=== PATIENT | male | born 1975 | race Caucasian/White ===

== ENCOUNTER 2018-06-06 11:09 | Observation (INO) ==
--- NOTE | 2018-06-06 13:51 | History & Physical Report ---
Date of Encounter: 06/07/18 Time of Encounter: 17:00 24 Hour HP Update - Instructions Instructions: If the History and Physical is less than 30 days old and was completed prior to A.M. admission and or procedure and has NOT been updated on calendar day of procedure please complete this update prior to performing procedure. - Update Patient reports changes in Medical Condition: No Changes in examination, assessment, or condition: No Changes in Medication: No Preop tests/diagnostics Reviewed: Yes Pre-Op MRSA Screen: Negative Surgery Remains Indicated: Yes Consent for Planned Operative Procedure(s) Verified: Yes
--- NOTE | 2018-06-06 13:51 | Discharge Summary ---
Outpatient Proc Discharge Plan - Plan Additional Instructions: There a few things to keep in mind in the next few days. If you notice redness at the site, drainage from the site, swelling at the battery site, feeling ill, fever, or chills, call our office. These are signs of infection. Infections are rare and can be treated, but delaying the diagnosis of infection is dangerous. It is normal to have soreness at the surgery site. This will go away in a few days. Do not submerge the incisions in water before they are totally healed. Keep the incision dry. Do not remove the bandage. We will remove the bandages in 2 weeks in the office. You are never very far from someone who can help if you have questions. Call our office with any questions or problems during the week. Go the emergency department if you are experiencing problems on a weekend or holiday. Have a good day, continue to be active. Home Medications: HYDROcodone/Acet 10/325 mg [[place] 10-325 mg] 1 each PO Q6HR PRN #14 tablet 02/04/16 [Rx] Naproxen Sodium [Aleve] 220 mg PO Q12HR PRN #20 tablet 02/04/16 [Rx] ALPRAZolam [Xanax 1 MG Tablet] 1 mg PO BID 03/01/18 [History] Paxil 60 mg PO DAILY 03/01/18 [History]
--- NOTE | 2018-06-06 13:52 | Pain Management Procedure Note ---
Date of procedure: 06/07/18 Procedure: PHYSICIAN: DR. ROBERTS PREOPERATIVE DIAGNOSIS: Failed Back Surgery Syndrome POSTOPERATIVE DIAGNOSIS: Same OPERATIVE PROCEDURE: Surgical removal intrathecal pump and re-implantation of programmable intrathecal pump (Battery Change) COMPLICATIONS: None ANESTHESIA: General Anesthesia SAFETY INFORMATION: Upon entering the operating suite, we verified the following information with the patient: 1. The patient denies allergies to latex, iodine, steroids, and IV contrast. 2. The patient denies taking oral anticoagulants. 3. The patient denies recently being given injectable anticoagulants. 4. The patient denies recent hospital, Emergency Department, or inpatient rehabilitation admission. 5. The patient denies use of herbal medications, in particular garlic and ginkgo. 6. The patient denies solid food or non clear liquid intake for at least 8 hours and clear liquids for 2 hours. PROCEDURE: The patient was correctly identified. All questions were answered and informed, written consent was obtained. An intravenous catheter was placed prior to the procedure. An appropriate weight-based dose of antibiotic was administered 60 minutes prior to the procedure via slow IV infusion. The patient was brought to the OR and general anesthesia was induced. Tracheal intubation was routine. We then placed the patient in the left lateral decubitus position and padded all pressure points on the elbows, hips, and knees. An axillary roll was placed, and I could place my hand between the bed and the left axilla with the roll inflated. A bateman bag was used to hold the patient in place. Strict sterile technique was followed throughout the procedure including surgical scrubbing and full body draping. The skin from the low back wrapping around the left flank to the anterior left abdomen was prepped three times with chlorohexidine soaked rough gauze; the area was allowed to dry. The patient's full body was draped in the usual sterile fashion. A surgical window of sterilized skin from iliac crest to rib cage and from table to table was created. Sticky plastic film impregnated with iodine was then placed over the surgical skin which allowed us to visualize the prior marker lines. Across the superior border of the pump, I placed a transverse linear skin wheal of four milliliters of 0.25% bupivacaine via a short twenty five gauge needle. An eleven blade was used to open an incision just slightly larger than the pump at its widest point. The incision crossed the upper aspect of the marked viejas. Blunt dissection was carried out to open a pocket slightly smaller than the pump. Electrocautery was used to control small areas of oozing blood. I was able to remove the in-situ pump with little effort once the membrane covering the pump was broken and removed from the device. I cut two silk sutures that were holding the device in place. This suture was removed. Next, the silk sutures holding the pump connector to the catheter access port were cut. I aspirated 1 ml of CSF via the catheter access port before removing the stebbins catheter from the old device. Injection through the catheter was not done at any time. The 1 ml of CSF was removed from the field. CSF appeared clear and flow was not obstructed. The pump connector was now pressed onto the spinal infusion port until it snapped into place. The connection was solid. I placed a silk tie around the catheter connector to secure it to the catheter access port. Two silk sutures were placed in the fascia in the base of the pocket. The sutures were brought through the suture loops on the pump, and the pump was drawn into the pocket. A strain relief loop of catheter was placed deep to the pump within the pocket. The sutures were tied to secure the pump with the infusion port oriented toward the midline. The refill port faced outward. The pump was interrogated and found to be working properly. We then set the initial infusion parameters. The wound was copiously irrigated with antibiotic and normal saline; no bleeding was noted. The incision was now closed and dressed. I used 0-0 barbed absorbable self locking suture to approximate the subcutaneous layer using a running stitch. The dermis was closed with a 2-0 barbed absorbable self locking suture using a running stitch. The skin edges were well approximated. I then placed a Zipline device to approximate the skin edges. The final dressing was a Tegaderm with impregnated hexagonal cushioning. The sponge and instrument counts were correct. The patient was allowed to emerge from general anesthesia. The patient tolerated the entire procedure well. The sterile field was taken down, and the patient was moved to the recovery room. Counseling regarding standard precautions after intrathecal pump placement was done. Most specifically, the patient was counseled regarding avoiding extreme postural changes for the next several weeks. The patient was advised to call us with any questions. We made sure to provide both office and medical care evaluation specialist small business representative phone numbers in case the patient had any problems or concerns. Was there an insurance administrative assistant present: No Estimated blood loss (cc): 0 Specimen: 0
[2018-06-07 11:52] LABS: Basophils # 0.1 K/mcL (0.0-0.2); Basophils % 0.6 %; Eosinophils # 0.4 K/mcL (0.0-0.6); Eosinophils % 3.8 %; Hematocrit 41.5 % (37.5-50.1); Hemoglobin 13.9 g/dL (12.9-16.9); Immature Granulocytes % 0.4 % (0-4); Lymphocytes # 4.5 K/mcL (0.6-4.6); Lymphocytes % 40.3 %; Mean Corpuscular HGB Conc 33.5 g/dL (31.6-35.5); Mean Corpuscular Hemoglobin 29.8 pg (28.0-33.3); Mean Corpuscular Volume 89.1 fL (83.0-100.0); Mean Platelet Volume 9.2 fL (9.4-12.4); Monocytes # 0.7 K/mcL (0.0-1.3); Monocytes % 6.3 %; Neutrophils # 5.5 K/mcL (1.6-8.9); Platelet Count 236 K/mcL (140-400); Red Blood Count 4.66 M/mcL (4.19-5.50); Red Cell Distribution Width 12.3 % (11.5-14.5); Segmented Neutrophils % 48.6 %
[2018-06-07 12:03] LABS: Prothrombin Time 11.5 Seconds (9.4-12.1)
[2018-06-07 12:05] LABS: Activated Partial Thrombo Time 32.2 Seconds (26.0-36.0)
--- NOTE | 2018-06-07 17:08 | Anesthesia Evaluation PreOp ---
Date of Encounter: 06/07/18 Time of Encounter: 17:06 - Past History Planned Operation: Replacement intrathecal Battery Pump Cardiac History: Denies any Significant Hx Pulmonary History: Smoker ANIMAL TRAINER History: Other (anxiety/Depression) Other Medical History: Other (failed back syndrome, lumbar radiculitis) Anesthesia History: No Prior Anesthetic Complications, Past Anesthesia (spinal fusion, CTR, Teeth extraction) Alcohol Use: none Drug use: none Medications and Allergies HYDROcodone/Acet 10/325 mg [[place] 10-325 mg] 1 each PO Q6HR PRN #14 tablet 02/04/16 [Rx] Naproxen Sodium [Aleve] 220 mg PO Q12HR PRN #20 tablet 02/04/16 [Rx] ALPRAZolam [Xanax 1 MG Tablet] 1 mg PO BID 03/01/18 [History] Paxil 60 mg PO DAILY 03/01/18 [History] Allergy/AdvReac Type Severity Reaction Status Date / Time No Known Allergies Allergy Verified 02/03/16 22:42 - Meds/Allergy Pre-op Review Medications Reviewed: Yes Allergies Reviewed: Yes Beta Blockers on Current Med List: No Anesthesia Results - Labs 06/07/18 11:40 - Imaging EKG: report reviewed (SR) Anesthesia Exam Vital Signs/O2 Sat, Most Current Temp Pulse Resp BP Pulse Ox 98 F 64 16 104/68 98 06/07/18 09:50 06/07/18 09:50 06/07/18 09:50 06/07/18 09:50 06/07/18 09:50 - HEENT Pupil (Motor): Pupils equal, EOMI Mallampati: I Teeth: Missing Denture Type: Upper: Complete Oral Opening: Greater than 3 - ANIMAL TRAINER LOC: Oriented ANIMAL TRAINER Motor: Normal RUE, Normal LUE, Normal RLE, Normal LLE, Normal Face ANIMAL TRAINER Sensory: Normal: RUE, LUE, RLE, LLE, Face - Cardiac Rhythm: Regular Murmur: None JVD: No Carotid Bruit: No - Pulmonary Breath Sounds: bilateral Clear Respiratory Effort: Symmetrical Anesthesia Assess/Plan ASA Score: 2 Level of consciousness: Cooperative Anesthetic Plan: General Autologous Blood: Yes Monitoring Plan: Standard Monitors Recovery Plan: PACU
[2018-06-07] MEDS ORDERED: Bupivacaine/EPI 1:200k 0.25%PF 10 ML VIAL INFILT ONE (17:12)
[2018-06-07] MEDS ORDERED: Lidocaine -MPF 4% 5 ML AMPUL ONE (17:42)
[2018-06-07] MEDS ORDERED: *HR* Propofol 200 MG/20 ML VIAL IVP ONE (17:43)
[2018-06-07] MEDS ORDERED: *HR* Succinylcholine 200 MG/10 ML VIAL IVP ONE (17:43)
[2018-06-07] MEDS ORDERED: *HR* Rocuronium Bromide 50 MG/5 ML VIAL ONE (17:43)
[2018-06-07] MEDS ORDERED: Dexamethasone 4 MG/ML VIAL ONE (17:43)
[2018-06-07] MEDS ORDERED: Ondansetron 4 MG/2 ML VIAL ONE (17:43)
[2018-06-07] MEDS ORDERED: *HR* Midazolam HCl 2 MG/2 ML VIAL ONE (17:43)
[2018-06-07] MEDS ORDERED: *HR* FentaNYL (PF) 100 MCG/2 ML VIAL ONE (17:43)
[2018-06-07] MEDS ORDERED: Lidocaine -MPF 2% 2 ML VIAL ONE (17:43)
[2018-06-07] MEDS ORDERED: *HR* HYDROmorphone (PF) 1 MG/ML SYRINGE IVP PRN (18:28)
[2018-06-07] MEDS ORDERED: *HR* Labetalol 20 MG/4 ML SYRINGE IVP PRN (18:28)
[2018-06-07] MEDS ORDERED: *HR* Promethazine 25 MG/ML VIAL IVP PRN (18:28)
[2018-06-07] MEDS ORDERED: *HR* OxyCODONE Immed Rel 5 MG TABLET PO PRN (18:28)
--- NOTE | 2018-06-07 19:11 | Discharge Summary ---
Date of Encounter: 06/07/18 Time of Encounter: 19:09 - Hospital Course Hospital course: Mr. Ventura is a 42 year old male - Time Spent with Patient Total time spent providing and/or coordinating discharge services: - Discharge Medications Home Medications: HYDROcodone/Acet 10/325 mg [[place] 10-325 mg] 1 each PO Q6HR PRN #14 tablet 02/04/16 [Rx] Naproxen Sodium [Aleve] 220 mg PO Q12HR PRN #20 tablet 02/04/16 [Rx] ALPRAZolam [Xanax 1 MG Tablet] 1 mg PO BID 03/01/18 [History] Paxil 60 mg PO DAILY 03/01/18 [History] Allergies/Adverse Reactions: Allergy/AdvReac Type Severity Reaction Status Date / Time No Known Allergies Allergy Verified 02/03/16 22:42 Date of admission: 06/07/18 07:52 Primary care physician: Ino Maya Physical Exam Initial Vital Signs Pulse Resp BP Pulse Ox 58 18 100/63 94 06/07/18 07:28 06/07/18 07:28 06/07/18 07:28 06/07/18 07:28 - General physical appearance General physical appearance: awake & oriented, no distress, no pain - Abdomen Abdomen: soft, non tender, bowel sounds - Psychiatric Psychiatric: oriented to time, oriented to person, oriented to place Procedures and tests throughout hospitalization: WBC mildly elevated, plts and coags nml Labs on day of discharge: Labs from last 24 hours 06/07/18 06/07/18 11:40 11:40 WBC 11.3 H RBC 4.66 Hgb 13.9 Hct 41.5 MCV 89.1 MCH 29.8 MCHC 33.5 RDW 12.3 Plt Count 236 MPV 9.2 L Immature Gran % 0.4 Seg Neutrophils % 48.6 Lymphocytes % 40.3 Monocytes % 6.3 Eosinophils % 3.8 Basophils % 0.6 Neutrophils # 5.5 Lymphocytes # 4.5 Monocytes # 0.7 Eosinophils # 0.4 Basophils # 0.1 PT 11.5 INR 1.0 APTT 32.2 - Patient Status Disposition: Home, Self-Care Condition: Good Functional capacity at discharge: independent ambulation Overall status at discharge: patient is back to baseline - Discharge Instructions Follow Up With: Ino Maya DO [Primary Care Provider] - Additional Instructions: There a few things to keep in mind in the next few days. If you notice redness at the site, drainage from the site, swelling at the battery site, feeling ill, fever, or chills, call our office. These are signs of infection. Infections are rare and can be treated, but delaying the diagnosis of infection is dangerous. It is normal to have soreness at the surgery site. This will go away in a few days. Do not submerge the incisions in water before they are totally healed. Keep the incision dry. Do not remove the bandage. We will remove the bandages in 2 weeks in the office. You are never very far from someone who can help if you have questions. Call our office with any questions or problems during the week. Go the emergency department if you are experiencing problems on a weekend or holiday. Have a good day, continue to be active. - Diet and Activity Activity: increase activity as tolerated (please print my post op instructions for the patient to take home. Call me with any issues.) Diet: advance to your usual diet
[2018-06-07 19:58] VITALS: BP 106/70
--- NOTE | 2018-06-07 23:06 | Anesthesia Evaluation Post Op ---
Date of Encounter: 06/07/18 Time of Encounter: 19:25 - Vital Signs Vital Signs: Vital Signs Temp Pulse Resp BP Pulse Ox 06/07/18 19:55 97.9 F 65 16 106/70 95 06/07/18 19:30 99.2 F 65 16 102/71 94 06/07/18 19:23 66 18 102/71 95 06/07/18 19:13 67 16 108/73 95 06/07/18 19:03 97.8 F 77 16 122/81 95 Intake and Output 06/07/18 06/07/18 06/07/18 07:59 15:59 23:59 Output Total 0 / 0 Balance 0 / 0 Output: Estimated Blood Loss 0 / 0 Other: # Voids 1 Weight 113.398 kg Patient Weight 06/07/18 23:59 Weight 113.398 kg - Lungs Lungs: Clear Ascult./Percussion - Airway Airway: Non-obstructed - Cardiovascular Baseline Rhythm - Mental Status Mental Status: Alert & Oriented, Answers Appropriately - Pain Pain Scale: 0 Pain Scale used: Numeric (1 - 10) - Nausea Vomiting Nausea Vomiting: Not Present - Hydration Hydration: Ice chips, Has not voided - Discharge PostOp Status: Transfer Patient to floor
== END 2018-06-07 20:46 | disposition home or self-care (01) ==
LOC: 3NENU
PROVIDERS: ADMIT Internal Medicine Cardiovascular Disease; ATTEND Internal Medicine Cardiovascular Disease